=== PATIENT | male | born 1970 | race Caucasian/White ===

== ENCOUNTER 2017-01-31 16:14 | Day surgery (SDC) | payer BC ==
[~2017-01-31] VITALS: Ht 182.9 cm; Wt 94.5 kg
[2017-01-31] VITALS (9 sets, daily range): BP systolic 106–126; BP diastolic 60–93; PULSE 77–105; TEMP 97.9–100
[~2017-01-31 16:14] MED LIST: CLARITIN D TAB1 TAB PO; TOPROL XL 50MG50 MG PO
[2017-02-01 01:00] VITALS: BP 114/74; PULSE 78; TEMP 97.9
[2017-02-01 05:47] VITALS: BP 130/80; PULSE 75; TEMP 98.2
[2017-02-01 07:26] LABS: BASO % 0.2 % (0.0-2.0); GRAN # 13.7 (1.4-6.5); GRAN % 89.5 % (42.2-75.2); HEMATOCRIT 43.4 % (42.0-52.0); HEMOGLOBIN 14.7 g/dl (13.5-18.0); LYMPH # 0.5 (1.2-3.4); LYMPH % 3.3 % (20.0-51.0); MEAN CELL VOLUME 87 fl (80.0-100.0); MEAN CORPUSCULAR HEMOGLOBIN 30 pg (27.0-31.0); MEAN CORPUSCULAR HGB CONC 34 g/dl (33.0-37.0); MEAN PLATELET VOLUME 10.6 fl (7.4-10.4); MONO # 0.9 (0.1-0.6); MONO % 5.6 % (1.7-9.3); PLATELET COUNT 171 K/mm3 (130-400); RED BLOOD COUNT 4.99 M/mm3 (4.20-5.60); REDCELL DISTRIBUTION WIDTH-CV 13.3 % (11.5-14.5); WHITE BLOOD COUNT 15.3 K/mm3 (4.8-10.8)
[2017-02-01 09:08] VITALS: BP 116/71; PULSE 72; TEMP 98.1
[2017-02-01 13:39] VITALS: BP 134/73; PULSE 73; TEMP 98.4
== END 2017-02-01 15:40 | disposition home or self-care (01) ==
LOC: JCC 16:14 → SDCO 16:14 → SURG 16:32 → SDCO 02-01 15:40
PROVIDERS: Surgery
DX: K35.3 Acute appendicitis with localized peritonitis (principal); I10 Essential (primary) hypertension
CPT/HCPCS: OP; J1100; J1170; J1885; J2250; J2405; J2543; J2704; J2710; J3010; J7030; J7050; Q9967